=== PATIENT | male | born 1965 ===

== ENCOUNTER 2017-12-13 18:48 | Emergency (ER) | payer BC ==
[~2017-12-13] VITALS: Ht 180.3 cm; Wt 97.5 kg
[2017-12-13] MEDS ORDERED: LISI-351 PO (18:56)
--- NOTE | 2017-12-13 19:12 | ER Report ---
History and Physical Time Seen By MD: 18:55 Hx. of Stated Complaint: FALL ICE FISHING, LAC TO RIGHT THUMB HPI/ROS CHIEF COMPLAINT: Right thumb laceration HISTORY OF PRESENT ILLNESS: Patient is a 52-year-old male coming by his brother , who presents the ED with complaint of right thumb laceration that occurred about 2 hours ago. He states that he was putting away his ice auger when he slipped on the ice and fell back and hit some portion of the auger but he does not believe with the blade. He states that he noticed some bleeding of his right thumb afterwards. Patient is up-to-date with his tetanus vaccination. He states he is able to move his thumb without any pain. REVIEW OF SYSTEMS: Respiratory: No cough, no dyspnea. Cardiovascular: No chest pain, no palpitations. Gastrointestinal: No vomiting, no abdominal pain. Musculoskeletal: No back pain. Skin: See history of present illness. Allergies: Coded Allergies: No Known Drug Allergies (Unverified , 12/13/17) Home Meds Reported Medications Lisinopril/Hydrochlorothiazide (LISINOPRIL-HCTZ 10-12.5 MG TAB) 1 Each Tablet, 1 EACH PO 12/13/17 Reviewed Nurses Notes: Yes Old Medical Records Reviewed: Yes Hx Substance Use Disorder: No Hx Alcohol Use: No Constitutional Vital Sign - Last 24 Hours 12/13/17 18:56 Temp 98.2 Pulse 80 Resp 14 B/P (MAP) 155/97 Pulse Ox 92 Physical Exam General Appearance: The patient is alert, has no immediate need for airway protection and no current signs of toxicity. Patient appears to be no acute distress. Respiratory: Chest is non tender, lungs are clear to auscultation. Cardiac: regular rate and rhythm Musculoskeletal: Neck: Neck is supple and non tender. Extremities have full range of motion and are non tender. Patient has full range of motion of his right thumb without any pain. Radial pulse is 2+ with normal capillary refill. Skin: There is a 2.5 cm linear laceration of the right distal thumb. Medical Decision Making ED Course/Re-evaluation ED Course Procedure: Laceration repair. Verbal consent was obtained from the patient. The 3 cm linear laceration on the distal anterior right thumb was anesthetized in the usual fashion with 1% lidocaine. The wound was scrubbed, draped and explored to its base with a gloved finger. There were no deep structures involved. No tendon injury was identified. The wound was repaired with 4 4-0 Prolene sutures in simple interrupted fashion. The wound repair was simple. The procedure was performed by myself. Patient appears to be in no acute distress. Bacitracin and bandage was applied. Decision to Disposition Date: Dec 13, 2017 Decision to Disposition Time: 19:26 Depart Departure Latest Vital Signs Vital Signs Date Time Temp Pulse Resp B/P (MAP) Pulse Ox O2 Delivery O2 Flow Rate FiO2 12/13/17 18:56 98.2 80 14 155/97 92 Impression: Primary Impression: Laceration of right thumb Condition: Improved Disposition: HOME OR SELF-CARE Patient Instructions: Finger Laceration (ED) Additional Instructions: Monitor for signs and symptoms of infection including redness, swelling, discharge, fever. Follow-up with her primary care provider for suture removal in 7-10 days. If having any worsening or concerning symptoms return to the emergency department. Problem Qualifiers Primary Impression: Laceration of right thumb Encounter type: initial encounter Damage to nail status: without damage Foreign body presence: without foreign body Qualified Codes: S61.011A - Laceration without foreign body of right thumb without damage to nail, initial encounter ALEJO DAVIS PA-C Dec 13, 2017 19:12
[2017-12-13] MEDS ORDERED: BACITRACIN OINT 0.9 GM PKT TP ONE (19:25)
[2017-12-13 19:38] VITALS: BP 147/96
== END 2017-12-13 19:42 | disposition home or self-care (01) ==
LOC: ER 18:55
DX: S61.011A Laceration without foreign body of right thumb without damage to nail, initial encounter (principal); W26.8XXA Contact with other sharp object(s), not elsewhere classified, initial encounter; Y93.29 Activity, other involving ice and snow
CPT/HCPCS: 99283